=== PATIENT | female | born 2000 | race African-American/Black ===

== ENCOUNTER 2021-03-26 22:25 | Emergency (ER) | payer OTHER, SELFPAY ==
[2021-03-26] MEDS ORDERED: Lidocaine 4% Cream 5 GM TUBE w/ Tegaderm ONE (23:09)
[2021-03-26] MEDS ORDERED: Lidocaine 1% (PF) 30 ML VIAL ONE (23:09)
== END 2021-03-26 23:53 | disposition home or self-care (01) ==
LOC: ERS 22:25 → EDBD 22:25 → ERS 23:53
DX: S03.2XXA Dislocation of tooth, initial encounter (principal); W01.10XA Fall on same level from slipping, tripping and stumbling with subsequent striking against unspecified object, initial encounter
CPT/HCPCS: 70486; J2001